=== PATIENT | female | born 1975 | race Caucasian/White ===

== ENCOUNTER 2017-10-09 06:30 | Day surgery (SDC) | payer MEDICARE, MEDICAID ==
[2017-10-09] MEDS ORDERED: Propofol 200 MG/20 ML SDV IV ONE (06:31)
[2017-10-09] MEDS ORDERED: Rocuronium 50 MG/5 ML Vial IV ONE (06:31)
[2017-10-09] MEDS ORDERED: fentaNYL 250 MCG/5 ML SDV IV ONE (06:31)
[2017-10-09] MEDS ORDERED: Promethazine 25 MG/ML SDV IV ONE (06:31)
[2017-10-09] MEDS ORDERED: Ondansetron 4 MG/2 ML SDV IV ONE (06:31)
[2017-10-09] MEDS ORDERED: Neostigmine Methylsulfate 10 MG/10 ML MDV IV ONE (06:31)
[2017-10-09] MEDS ORDERED: Midazolam 1 MG/ML 2 ML SDV IV ONE (06:31)
[2017-10-09] MEDS ORDERED: Glycopyrrolate 0.2 MG/ML 2 ML SDV IV ONE (06:31)
[2017-10-09] MEDS ORDERED: Dexamethasone 4 MG/ML SDV IV ONE (06:31)
[2017-10-09] MEDS ORDERED: Succinylcholine 200 MG/10 ML MDV IV ONE (06:31)
[2017-10-09] MEDS ORDERED: Lactated Ringers 1,000 ML IV SCH (07:15)
[2017-10-09] MEDS ORDERED: Clindamycin Phosphate 600 MG/4 ML SDV ONE (09:29)
[2017-10-09] MEDS ORDERED: Sodium Chloride 0.9% 100 ML ONE (09:33)
[2017-10-09] MEDS ORDERED: Clindamycin Phosphate 600 MG in Sodium Chloride 0.9% 100 ML IV ONE (09:40)
[2017-10-09] MEDS ORDERED: Iopamidol 612 MG/ML 50 ML SDV ONE (12:15)
[2017-10-09] MEDS ORDERED: Bupivacaine 0.5% 30 ML SDV ONE (13:25)
[2017-10-09] MEDS ORDERED: Bupivacaine 0.5% 30 ML SDV INJECT ONE (13:28)
[2017-10-09] MEDS ORDERED: HYDROmorphone 0.5 MG/0.5 ML Syringe IVPUSH PRN (14:41)
[2017-10-09] MEDS ORDERED: Sodium Chloride 0.9% 10 ML Syringe FLUSH PRN (14:41)
--- NOTE | 2017-10-09 15:42 | OR ---
DATE: 10/09/2017 PREOPERATIVE DIAGNOSIS: Chronic cholecystitis with cholelithiasis. POSTOPERATIVE DIAGNOSIS: Chronic cholecystitis, cholelithiasis, with cholecystoduodenal fistula. PROCEDURE: Laparoscopic cholecystectomy with intraoperative cholangiogram and repair of cholecystoduodenal fistula. ANESTHESIA: General. ESTIMATED BLOOD LOSS: 100 mL. SPECIMEN: Gallbladder. OPERATIVE FINDINGS: This patient had a markedly-contracted thick-walled gallbladder and had a fistula between [place] pouch of the gallbladder and the upper first part of the duodenum. She does have some other lower abdominal adhesions from her prior section. INDICATION FOR PROCEDURE: This is a 42-year-old female who has by radiologic imaging large gallstones in her gallbladder and symptomatic right upper quadrant epigastric abdominal pain. DESCRIPTION OF PROCEDURE: After adequate preparation, a 5-mm trocar was placed in the right upper quadrant and the abdomen insufflated under direct vision using a video camera. Three other trocars were placed in the standard fashion. Examination of the abdomen showed some lower midline adhesions from her prior C- section. She does have an appearance of a fatty liver. The gallbladder was identified, which was markedly contracted and scarred in within the surrounding area. The adhesions of the omentum to the Julieta pouch and duodenum area were cleared free. These were really dense adhesions, and using Bovie, I was able to free up the gallbladder on the lateral side and elevate this up; however, in dissecting down toward Julieta pouch, I was completely unable to dissect the duodenum from Julieta pouch. In dissecting this free sharply was evident that she had a fistula between the gallbladder and duodenum which opened up with dissection, but was able to free the duodenum. The gallbladder was then taken down in a retrograde fashion beginning at the fundus of the gallbladder and elevating the liver with blunt and sharp and cautery dissection, removing the gallbladder from the bed down to below the hole in the Julieta pouch where the fistula had been present. An intraoperative cholangiogram was done and confirmed that there were no problems with the common duct. She had a lot of scarring and I was actually unable to tell where the common duct was. Cholangiogram showed good free flow of dye into the hepatic radicals and through a nondilated common bile duct down into the duodenum, demonstrating no obstruction of the common duct and a clear path between the gallbladder fistula and the common bile duct. A 45 mm stapling device was used to staple across the gallbladder between the cystic duct and gallbladder fistula. This did not completely fire all the way across the gallbladder and the remaining opening in the small remnant of gallbladder was closed using an imbricating [id number] Vicryl suture. The gallbladder was then completely disassociated from the liver. Attention was drawn to the opening in the duodenum and 2 [id number] sutures were used to close the duodenal fistula opening. This was then flooded in the right upper quadrant with saline and an orogastric tube was used to insufflate the stomach. There was no evidence of air leak through the duodenal repair. A large Eagle-Hoffman fluted drain was then placed in the hepatic bed and the drain was brought out through the right-sided trocar site. This was then sutured in place. The abdomen was irrigated and suctioned clear. The abdomen was desufflated and the skin closed with Monocryl. [facility] /[id number]
--- NOTE | 2017-10-09 17:33 | PCM.SN ---
- Free Text/Narrative Note: Patient is alert and oriented. Pain OK. Some PO intake without nausea. Drain clear. Requesting to go home. Instructions given. Will see in FU in surgery clinic 10-12-17. Will take own medications at home. Can discharge. Dr. Galan
== END 2017-10-09 18:00 | disposition home or self-care (01) ==
LOC: DL.SDS 06:30 → EDSTATUS 08:00 → DL.MS 15:11 → DL.SDS 18:00
PROVIDERS: ATTEND Surgery
DX: K81.1 Chronic cholecystitis (principal); K82.3 Fistula of gallbladder; F17.210 Nicotine dependence, cigarettes, uncomplicated; Z88.8 Allergy status to other drugs, medicaments and biological substances; Z88.5 Allergy status to narcotic agent; Z88.0 Allergy status to penicillin
CPT/HCPCS: 00790; J0330; J1100; J2250; J2405; J2550; J2704; J2710; J3010; J3490; J7050; J7120; Q9967; S0077

== ENCOUNTER 2018-07-20 19:08 | Emergency (ER) | payer MEDICARE, MEDICAID ==
--- NOTE | 2018-07-20 19:18 | EDM.PDOC ---
ED HPI GENERAL MEDICAL PROBLEM - General Chief Complaint: General Stated Complaint: PUPILS DIALATED Time Seen by Provider: 07/20/18 19:20 Source of Information: Reports: Patient History Limitations: Reports: No Limitations - History of Present Illness INITIAL COMMENTS - FREE TEXT/NARRATIVE: Patient comes by ambulance from home today with concerns of an altered mental status. The history of present illness is primarily obtained from EMS as well as the daughter as the patient does not verbalize. According to the daughter the patient is a chronic pain management patient who takes alprazolam and methadone for chronic back pain. She has not seen her mother for the last 4-5 days and went to check on her yesterday. Yesterday she was tired and did not have much energy. She stated that she didn't feel well. She went to check on her today and she was not responsive. EMS was summoned. Upon EMS arrival they noticed a very dangerous and uninhabitable living environment that was covered in cat Feces and Urine with a large amount of garbage scattered around the house. Upon EMS arrival the patient is alert to verbal does follow commands but verbalizes nothing. Patient was incontinent of stool upon arrival. Generalized Pain Score (Numeric/FACES): 4 - Related Data Allergies Allergy/AdvReac Type Severity Reaction Status Date / Time morphine Allergy Facial Verified 07/20/18 19:42 Swelling Penicillins Allergy Other Verified 07/20/18 19:42 sulfamethoxazole Allergy Hives Verified 07/20/18 19:42 [From Bactrim] trimethoprim [From Bactrim] Allergy Hives Verified 07/20/18 19:42 Home Meds: Home Meds ALPRAZolam [Xanax] 0.25 mg PO Q4H PRN 10/08/17 [History] Albuterol/Ipratropium [Combivent Respimat] 1 - 2 puff INH Q4HR PRN 10/08/17 [ History] Caffeine 400 mg PO DAILY 10/08/17 [History] Carisoprodol [Soma] 350 mg PO DAILY 10/08/17 [History] Cholecalciferol (Vitamin D3) [Vitamin D] 5,000 unit PO DAILY 10/08/17 [History] DULoxetine [Cymbalta] 120 mg PO DAILY 10/08/17 [History] Ibuprofen 1 - 2 tab PO Q6H PRN 10/08/17 [History] Levothyroxine 25 mcg PO DAILY 10/08/17 [History] Lisinopril 10 mg PO DAILY 10/08/17 [History] Loperamide [Imodium AD] 8 mg PO Q6H PRN 10/08/17 [History] Magnesium 250 mg PO DAILY 10/08/17 [History] Methadone 5 mg PO QID 10/08/17 [History] Methocarbamol 500 mg PO TID 10/08/17 [History] Ondansetron HCl [Zofran] 4 mg PO DAILY PRN 10/08/17 [History] Pantoprazole Sodium [Protonix] 40 mg PO DAILY 10/08/17 [History] Pnv No.95/Ferrous Fum/Folic AC [ Multivitamin Tablet] 1 tab PO DAILY [History] Pregabalin [Lyrica] 300 mg PO BID 10/08/17 [History] Rosuvastatin [Crestor] 5 mg PO DAILY 10/08/17 [History] diphenhydrAMINE [Benadryl] 50 mg PO BID 10/08/17 [History] Past Medical History HEENT History: Reports: Impaired Vision Other HEENT History: WEARS CORRECTIVE LENS. UPPER DENTURE PLATE Cardiovascular History: Reports: High Cholesterol, Hypertension, Other (See Below) Other Cardiovascular History: RIGHT BUNDLE BRANCH BLOCK Other Respiratory History: HX OF TOBACCO HABITUATION. 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: Endometrial Ablation, Endometriosis, , Spontaneous Musculoskeletal History: Reports: Back Pain, Chronic, Fracture, Fibromyalgia, Neck Pain, Chronic, Osteoarthritis, Other (See Below) Other Musculoskeletal History: HX OF LOWER SPINAL FRACTURES Neurological History: Reports: None Psychiatric History: Reports: Anxiety, Mood Swings Endocrine/Metabolic History: Reports: Hypothyroidism, Obesity/BMI 30+, Osteoporosis, Vitamin D Deficiency Hematologic History: Reports: None Immunologic History: Reports: None Oncologic (Cancer) History: Reports: None Dermatologic History: Reports: None - Infectious Disease History Infectious Disease History: Reports: Chicken Pox - Past Surgical History Head Surgeries/Procedures: Reports: None HEENT Surgical History: Reports: Oral Surgery Cardiovascular Surgical History: Reports: None Respiratory Surgical History: Reports: None GI Surgical History: Reports: EGD Female Surgical History: Reports: Section, Cystoscopy, D&C Endocrine Surgical History: Reports: None Neurological Surgical History: Reports: Lumbar Spine Musculoskeletal Surgical History: Reports: None Oncologic Surgical History: Reports: None Dermatological Surgical History: Reports: None Social & Family History - Caffeine Use Caffeine Use: Reports: Soda Other Caffeine Use: SODA POP 6 PACK DAILY ED ROS GENERAL - Review of Systems Review Of Systems: ROS reveals no pertinent complaints other than HPI. ED EXAM, GENERAL - Physical Exam Exam: See Below Exam Limited By: Altered Mental Status General Appearance: Alert (To verbal), Obese, Other (She has a very strong foul smell of ammonia to her.) Eye Exam: Bilateral Eye: PERRL Ears: Normal External Exam, Normal TMs Nose: Normal Inspection, Normal Mucosa Throat/Mouth: Other (Her lips are very dry and cracked. Her oral mucosa is very dry. No erythema induration or swelling of the tonsillar beds.) Head: Atraumatic Respiratory/Chest: No Respiratory Distress, No Accessory Muscle Use, Decreased Breath Sounds Cardiovascular: Normal Peripheral Pulses, Regular Rate, Rhythm Peripheral Pulses: 2+: Radial (L), Radial (R), Posterior Tibial (L), Posterior Tibial (R), Dorsalis Pedis (L), Dorsalis Pedis (R) GI/Abdominal: Normal Bowel Sounds, Soft, Tender (Generalized tenderness throughout the abdomen.) (Female) Exam: Deferred Rectal (Female) Exam: Deferred Back Exam: Normal Inspection, Full Range of Motion Extremities: Normal Inspection, Non-Tender, No Pedal Edema, Normal Capillary Refill Neurological: Alert, Slow to Respond, Other (MARKS spontaneously nothing to command. ). No: Oriented (no verbal response) Psychiatric: Flat Affect Skin Exam: Dry, Intact, No Rash, Increased Warmth EKG INTERPRETATION EKG Date: 07/20/18 Time: 19:27 Rhythm: NSR Rate (Beats/Min): 71 [place]: Normal P-Wave: Present QRS: Normal ST-T: Depressed (V3, V4, V5 1mm) QT: Normal Course - Vital Signs Last Recorded V/S: Last Vital Signs Temp 37.2 C 07/20/18 21:17 Pulse 81 07/20/18 21:17 Resp 16 07/20/18 21:17 BP 183/90 H 07/20/18 21:17 Pulse Ox 97 07/20/18 21:17 - Orders/Labs/Meds Orders: Active Orders 24 hr Category Date Time Status EKG 12 Lead [EKG Documentation Completion] [RC] URGENT Care 07/20/18 19:26 Active Peripheral IV Care [RC] . DIRECTED Care 07/20/18 19:26 Active CULTURE BLOOD [BC] Stat Lab 07/20/18 19:25 Results CULTURE BLOOD [BC] Stat Lab 07/20/18 19:50 Received TOXOPLASMA ABS IGG/IGM [REF] Stat Lab 07/20/18 19:50 Received Sodium Chloride 0.9% [Saline Flush] Med 07/20/18 19:26 Active 10 ml FLUSH ASDIRECTED PRN Sodium Chloride 0.9% with KCl [Normal Saline with 40 Med 07/20/18 20:45 Active mEq KCl] 1,000 ml IV ASDIRECTED Blood Culture x2 Reflex Set [OM.PC] Stat Oth 07/20/18 19:26 Ordered Peripheral IV Insertion Adult [OM.PC] Stat Oth 07/20/18 19:26 Ordered Medication Orders Potassium Chloride/Sodium Chloride (Normal Saline With 40 Meq Kcl) 1,000 mls @ 250 mls/hr IV ASDIRECTED JUANA Last Infusion: 07/20/18 22:03 Dose: 125 mls/hr Admin: 07/20/18 21:15 Dose: 250 mls/hr Sodium Chloride (Saline Flush) 10 ml FLUSH ASDIRECTED PRN PRN Reason: Keep Vein Open Last Admin: 07/20/18 19:36 Dose: 10 ml Labs: Laboratory Tests 07/20/18 07/20/18 07/20/18 Range/Units 19: 19:25 19:25 WBC 12.9 H (5.0-10.0) 10^3/uL RBC 4.27 (4.2-5.4) 10^6/uL Hgb 14.3 (12.0-16.0) g/dL Hct 41.5 (37.0-47.0) % MCV 97.2 (80-100) fL MCH 33.5 (27.0-34.0) pg MCHC 34.5 (33.0-35.0) g/dL Plt Count 175 (150-450) 10^3/uL Neut % (Auto) 82.4 H (42.2-75.2) % Lymph % (Auto) 9.5 L (20.5-50.1) % [place] % (Auto) 7.9 (2-8) % Eos % (Auto) 0.0 L (1.0-3.0) % Baso % (Auto) 0.2 (0.0-1.0) % Sodium (135-145) mmol/L Potassium (3.6-5.0) mmol/L Chloride (101-111) mmol/L Carbon Dioxide (21.0-31.0) mmol/L Anion Gap BUN (7-18) mg/dL Creatinine (0.6-1.3) mg/dL Est Cr Clr Drug Dosing mL/min Estimated GFR (MDRD) BUN/Creatinine Ratio Glucose (74-105) mg/dL POC Glucose 113 H (70-105) mg/dl Lactic Acid 1.2 (0.5-2.2) mmol/L Calcium (8.4-10.2) mg/dl Total Bilirubin (0.2-1.0) mg/dL AST (10-42) IU/L ALT (10-60) IU/L Alkaline Phosphatase (42-121) IU/L Ammonia (11-35) umol/L Creatine Kinase (26-174) IU/L Creatine Kinase Index (0-2.4) % CK-MB (CK-2) (0.4-4.7) ng/mL Troponin I (0.00-0.02) ng/ml C-Reactive Protein (0.0-1.3) mg/dL Total Protein (6.7-8.2) g/dl Albumin (3.2-5.5) g/dl Globulin Albumin/Globulin Ratio Urine Color (YELLOW) Urine Appearance (CLEAR) Urine pH (5.0-9.0) Ur Specific [place] (1.005-1.030) Urine Protein (NEGATIVE) Urine Glucose (UA) (NEGATIVE) Urine Ketones (NEGATIVE) Urine Occult Blood (NEGATIVE) Urine Nitrite (NEGATIVE) Urine Bilirubin (NEGATIVE) Urine Urobilinogen (0.2-1.0) mg/dL Ur Leukocyte Esterase (NEGATIVE) Urine RBC /HPF Urine WBC (0-5/HPF) /HPF Ur Epithelial Cells /HPF Amorphous Sediment (0/HPF) /HPF Urine Bacteria (0-FEW/HPF) /HPF Urine Opiates Screen (NEGATIVE) Ur Oxycodone Screen (NEGATIVE) Urine Methadone Screen (NEGATIVE) Ur Barbiturates Screen (NEGATIVE) U Tricyclic Antidepress (NEGATIVE) Ur Phencyclidine Scrn (NEGATIVE) Ur Amphetamine Screen (NEGATIVE) U Methamphetamines Scrn (NEGATIVE) Urine MDMA Screen (NEGATIVE) U Benzodiazepines Scrn (NEGATIVE) Urine Cocaine Screen (NEGATIVE) U Marijuana (THC) Screen (NEGATIVE) 07/20/18 07/20/18 07/20/18 Range/Units 19:25 19:32 19:32 WBC (5.0-10.0) 10^3/uL RBC (4.2-5.4) 10^6/uL Hgb (12.0-16.0) g/dL Hct (37.0-47.0) % MCV (80-100) fL MCH (27.0-34.0) pg MCHC (33.0-35.0) g/dL Plt Count (150-450) 10^3/uL Neut % (Auto) (42.2-75.2) % Lymph % (Auto) (20.5-50.1) % [place] % (Auto) (2-8) % Eos % (Auto) (1.0-3.0) % Baso % (Auto) (0.0-1.0) % Sodium (135-145) mmol/L Potassium (3.6-5.0) mmol/L Chloride (101-111) mmol/L Carbon Dioxide (21.0-31.0) mmol/L Anion Gap BUN (7-18) mg/dL Creatinine (0.6-1.3) mg/dL Est Cr Clr Drug Dosing mL/min Estimated GFR (MDRD) BUN/Creatinine Ratio Glucose (74-105) mg/dL POC Glucose (70-105) mg/dl Lactic Acid (0.5-2.2) mmol/L Calcium (8.4-10.2) mg/dl Total Bilirubin (0.2-1.0) mg/dL AST (10-42) IU/L ALT (10-60) IU/L Alkaline Phosphatase (42-121) IU/L Ammonia (11-35) umol/L Creatine Kinase (26-174) IU/L Creatine Kinase Index (0-2.4) % CK-MB (CK-2) (0.4-4.7) ng/mL Troponin I (0.00-0.02) ng/ml C-Reactive Protein 0.5 (0.0-1.3) mg/dL Total Protein (6.7-8.2) g/dl Albumin (3.2-5.5) g/dl Globulin Albumin/Globulin Ratio Urine Color Yellow (YELLOW) Urine Appearance Cloudy (CLEAR) Urine pH 5.0 (5.0-9.0) Ur Specific [place] >= 1.030 (1.005-1.030) Urine Protein Trace H (NEGATIVE) Urine Glucose (UA) Negative (NEGATIVE) Urine Ketones Trace H (NEGATIVE) Urine Occult Blood Trace-intact H (NEGATIVE) Urine Nitrite Negative (NEGATIVE) Urine Bilirubin Small H (NEGATIVE) Urine Urobilinogen 1.0 (0.2-1.0) mg/dL Ur Leukocyte Esterase Negative (NEGATIVE) Urine RBC Not seen /HPF Urine WBC 0-5 (0-5/HPF) /HPF Ur Epithelial Cells Not seen /HPF Amorphous Sediment Many H (0/HPF) /HPF Urine Bacteria Rare (0-FEW/HPF) /HPF Urine Opiates Screen Negative (NEGATIVE) Ur Oxycodone Screen Negative (NEGATIVE) Urine Methadone Screen Positive H (NEGATIVE) Ur Barbiturates Screen Negative (NEGATIVE) U Tricyclic Antidepress Negative (NEGATIVE) Ur Phencyclidine Scrn Negative (NEGATIVE) Ur Amphetamine Screen Negative (NEGATIVE) U Methamphetamines Scrn Negative (NEGATIVE) Urine MDMA Screen Negative (NEGATIVE) U Benzodiazepines Scrn Negative (NEGATIVE) Urine Cocaine Screen Negative (NEGATIVE) U Marijuana (THC) Screen Negative (NEGATIVE) 07/20/18 07/20/18 07/20/18 Range/Units 19:50 19:50 19:50 WBC (5.0-10.0) 10^3/uL RBC (4.2-5.4) 10^6/uL Hgb (12.0-16.0) g/dL Hct (37.0-47.0) % MCV (80-100) fL MCH (27.0-34.0) pg MCHC (33.0-35.0) g/dL Plt Count (150-450) 10^3/uL Neut % (Auto) (42.2-75.2) % Lymph % (Auto) (20.5-50.1) % [place] % (Auto) (2-8) % Eos % (Auto) (1.0-3.0) % Baso % (Auto) (0.0-1.0) % Sodium 142 (135-145) mmol/L Potassium 2.9 L (3.6-5.0) mmol/L Chloride 104 (101-111) mmol/L Carbon Dioxide 25.0 (21.0-31.0) mmol/L Anion Gap 15.9 BUN 14 (7-18) mg/dL Creatinine 0.9 (0.6-1.3) mg/dL Est Cr Clr Drug Dosing 76.76 mL/min Estimated GFR (MDRD) > 60 BUN/Creatinine Ratio 15.55 Glucose 126 H (74-105) mg/dL POC Glucose (70-105) mg/dl Lactic Acid (0.5-2.2) mmol/L Calcium 8.5 (8.4-10.2) mg/dl Total Bilirubin 1.1 H (0.2-1.0) mg/dL AST 52 H (10-42) IU/L ALT 30 (10-60) IU/L Alkaline Phosphatase 52 (42-121) IU/L Ammonia 20 (11-35) umol/L Creatine Kinase 801 H (26-174) IU/L Creatine Kinase Index 0.1 (0-2.4) % CK-MB (CK-2) 0.80 (0.4-4.7) ng/mL Troponin I 0.09 H* (0.00-0.02) ng/ml C-Reactive Protein (0.0-1.3) mg/dL Total Protein 7.2 (6.7-8.2) g/dl Albumin 3.6 (3.2-5.5) g/dl Globulin 3.6 Albumin/Globulin Ratio 1.00 Urine Color (YELLOW) Urine Appearance (CLEAR) Urine pH (5.0-9.0) Ur Specific [place] (1.005-1.030) Urine Protein (NEGATIVE) Urine Glucose (UA) (NEGATIVE) Urine Ketones (NEGATIVE) Urine Occult Blood (NEGATIVE) Urine Nitrite (NEGATIVE) Urine Bilirubin (NEGATIVE) Urine Urobilinogen (0.2-1.0) mg/dL Ur Leukocyte Esterase (NEGATIVE) Urine RBC /HPF Urine WBC (0-5/HPF) /HPF Ur Epithelial Cells /HPF Amorphous Sediment (0/HPF) /HPF Urine Bacteria (0-FEW/HPF) /HPF Urine Opiates Screen (NEGATIVE) Ur Oxycodone Screen (NEGATIVE) Urine Methadone Screen (NEGATIVE) Ur Barbiturates Screen (NEGATIVE) U Tricyclic Antidepress (NEGATIVE) Ur Phencyclidine Scrn (NEGATIVE) Ur Amphetamine Screen (NEGATIVE) U Methamphetamines Scrn (NEGATIVE) Urine MDMA Screen (NEGATIVE) U Benzodiazepines Scrn (NEGATIVE) Urine Cocaine Screen (NEGATIVE) U Marijuana (THC) Screen (NEGATIVE) Microbiology 07/20/18 19:25 Anaerobic Blood Culture - Final Blood - Venous 07/20/18 20:08 Influenza Type A Antigen Screen - Final Nasopharyngeal Swab NEGATIVE INFLUENZA A VIRUS AG Influenza Type B Antigen Screen - Final NEGATIVE INFLUENZA B VIRUS AG Meds: Medications Generic Name Dose Route Start Last Admin Trade Name Freq PRN Reason Stop Dose Admin Potassium Chloride/Sodium Chloride 1,000 mls @ 250 mls/hr 07/20/18 20:45 22:03 Normal Saline With 40 Meq Kcl IV 125 mls/hr ASDIRECTED JUANA Infusion Sodium Chloride 10 ml 07/20/18 19:26 07/20/18 19:36 Saline Flush FLUSH 10 ml ASDIRECTED PRN Administration Keep Vein Open Discontinued Medications Generic Name Dose Route Start Last Admin Trade Name Freq PRN Reason Stop Dose Admin Lactated Ringer's 1,000 mls @ 1,000 mls/hr 07/20/18 19:39 07/20/18 19:46 Ringers, Lactated IV 07/20/18 20:38 1,000 mls/hr .BOLUS ONE Administration Midazolam HCl 2 mg 07/20/18 20:32 07/20/18 20:38 Versed 1 Mg/Ml IVPUSH 07/20/18 20:33 2 mg ONETIME ONE Administration - Radiology Interpretation Free Text/Narrative:: CT head no evidence for acute transcortical infarct, acute intracranial hemorrhage or mass effect. Per radiology. CT abdomen pelvis without contrast as the daughter relates a contrast allergy shows no evidence of acute abdominopelvic pathology. Per radiology. - Re-Assessments/Exams Free Text/Narrative Re-Assessment/Exam: 07/20/18 22:09 The patient did slowly start to verbalize while she was in the emergency department but really gave no more information. [address] scan of the head and abdomen due to the tenderness in her abdomen both of them are negative per radiology. Her EKG does show some mild depression at 1 mm in V3, V4, V5. I'm unsure if she' s having chest pain and she does not answer that question. Her troponin is mildly elevated at 0.09. Her CK is mildly elevated at 801 making it less likely for rhabdomyolysis. I'm unable to determine the cause of her fever altered mental status. She is on a chronic pain contract and uses methadone and her urine drug screen is appropriate. The family does not want her transferred to [place] for further evaluation. I did receive an excepting infarct although due to the weather and the roads I am unable to transfer her to [place]. I called and spoke with Dr. Schroeder in [place] ER provider, [facility] findings and concerns relayed to him he accepted the patient in transfer at this time. NO new orders. Departure - Departure Time of Disposition: 21:15 Disposition: DC/Tfer to [facility] 02 Clinical Impression: Hypokalemia, Elevated troponin Altered mental state Qualifiers: Altered mental status type: unspecified Qualified Code(s): R41.82 - Altered mental status, unspecified - Discharge Information Forms: ED Department Discharge - My Orders Last 24 Hours: My Active Orders 07/20/18 19:25 CULTURE BLOOD [BC] Stat 07/20/18 19:26 EKG 12 Lead [EKG Documentation Completion] [RC] URGENT Peripheral IV Care [RC] . DIRECTED Sodium Chloride 0.9% [Saline Flush] 10 ml FLUSH ASDIRECTED PRN Blood Culture x2 Reflex Set [OM.PC] Stat Peripheral IV Insertion Adult [OM.PC] Stat 07/20/18 19:50 CULTURE BLOOD [BC] Stat TOXOPLASMA ABS IGG/IGM [REF] Stat 07/20/18 20:45 Sodium Chloride 0.9% with KCl [Normal Saline with 40 mEq KCl] 1,000 ml IV ASDIRECTED - Assessment/Plan Last 24 Hours: My Active Orders 07/20/18 19:25 CULTURE BLOOD [BC] Stat 07/20/18 19:26 EKG 12 Lead [EKG Documentation Completion] [RC] URGENT Peripheral IV Care [RC] . DIRECTED Sodium Chloride 0.9% [Saline Flush] 10 ml FLUSH ASDIRECTED PRN Blood Culture x2 Reflex Set [OM.PC] Stat Peripheral IV Insertion Adult [OM.PC] Stat 07/20/18 19:50 CULTURE BLOOD [BC] Stat TOXOPLASMA ABS IGG/IGM [REF] Stat 07/20/18 20:45 Sodium Chloride 0.9% with KCl [Normal Saline with 40 mEq KCl] 1,000 ml IV ASDIRECTED Assessment:: altered mental status elevated troponin hypokalemia chronic pain. Plan: Transfer to [facility] for further care and evaluation.
[2018-07-20] MEDS ORDERED: Sodium Chloride 0.9% 10 ML Syringe FLUSH PRN (19:26)
[2018-07-20] MEDS ORDERED: Lactated Ringers 1,000 ML IV ONE (19:39)
[2018-07-20 20:16] LABS: ANION GAP 15.9; CHLORIDE,CL 104 mmol/L (101-111); SODIUM,NA 142 mmol/L (135-145)
[2018-07-20] MEDS ORDERED: Midazolam 1 MG/ML 2 ML SDV IVPUSH ONE (20:32)
[2018-07-20] MEDS ORDERED: Sodium Chloride 0.9% with KCl 1,000 ML IV SCH (20:45)
[2018-07-20] MEDS ORDERED: Aspirin 81 MG Tab.Chew PO ONE (22:12)
== END 2018-07-20 22:34 ==
LOC: DL.ED 19:08
DX: R41.82 Altered mental status, unspecified (principal); E87.6 Hypokalemia; R79.89 Other specified abnormal findings of blood chemistry; M54.5 Low back pain; G89.29 Other chronic pain; I10 Essential (primary) hypertension; E03.9 Hypothyroidism, unspecified; E66.9 Obesity, unspecified; Z79.899 Other long term (current) drug therapy; Z88.0 Allergy status to penicillin; Z88.2 Allergy status to sulfonamides; Z88.5 Allergy status to narcotic agent
CPT/HCPCS: 36415; 70450; 74176; 80053; 80305; 81001; 82140; 82550; 82553; 82962; 83605; 84484; 85025; 86140; 86777; 86778; 87040; 87804; 93005; 96361; 96365; 96375; 99285; A9270; J2250; J3480; J7120

== ENCOUNTER 2018-07-27 17:53 | Emergency (ER) | payer MEDICARE, MEDICAID ==
[2018-07-27] MEDS ORDERED: Sodium Chloride 0.9% 10 ML Syringe FLUSH PRN (18:00)
--- NOTE | 2018-07-27 18:27 | EDM.PDOC ---
ED HPI GENERAL MEDICAL PROBLEM - General Chief Complaint: Drug or Alcohol Abuse Stated Complaint: AMBULANCE Time Seen by Provider: 07/27/18 18:15 Source of Information: Reports: EMS, Family History Limitations: Reports: Altered Mental Status - History of Present Illness INITIAL COMMENTS - FREE TEXT/NARRATIVE: Patient comes emergency department today for by ambulance from home with concerns of an altered mental status. The patient was recently discharged from the [facility] following a similar episode of altered mental status. I was actually the provider that saw her at that time. She does have a long-standing history of polypharmacy substance abuse. When she was in my not they decreased her methadone discontinued her Xanax and 2 other medications that the family is unsure of. Yesterday she was not herself not very active and was unable to go up the stairs. Today after laying around all day and doing nothing at home the family went to check on her they could not wake her up. They reported that her oxygen saturation was in the mid 70s. According to the family they have been observing her swallowing her pills and they have been controlling her pills with a timed bottle to ensure adherence to the administration time. Upon EMS arrival she was unresponsive with shallow respirations. She was given a total of 6 mg of Narcan until she alerted. She was able to ambulate to the ambulance at that time. She was combative in route to the emergency department. Unable to obtain any history of present illness from the patient as she is confused and somewhat combative on arrival. - Related Data Allergies Allergy/AdvReac Type Severity Reaction Status Date / Time morphine Allergy Facial Verified 07/27/18 18:15 Swelling Penicillins Allergy Other Verified 07/27/18 18:15 sulfamethoxazole Allergy Hives Verified 07/27/18 18:15 [From Bactrim] trimethoprim [From Bactrim] Allergy Hives Verified 07/27/18 18:15 Home Meds: Home Meds ALPRAZolam [Xanax] 0.25 mg PO Q4H PRN 10/08/17 [History] Albuterol/Ipratropium [Combivent Respimat] 1 - 2 puff INH Q4HR PRN 10/08/17 [ History] Caffeine 400 mg PO DAILY 10/08/17 [History] Carisoprodol [Soma] 350 mg PO DAILY 10/08/17 [History] Cholecalciferol (Vitamin D3) [Vitamin D] 5,000 unit PO DAILY 10/08/17 [History] DULoxetine [Cymbalta] 120 mg PO DAILY 10/08/17 [History] Ibuprofen 1 - 2 tab PO Q6H PRN 10/08/17 [History] Levothyroxine 25 mcg PO DAILY 10/08/17 [History] Lisinopril 10 mg PO DAILY 10/08/17 [History] Loperamide [Imodium AD] 8 mg PO Q6H PRN 10/08/17 [History] Magnesium 250 mg PO DAILY 10/08/17 [History] Methadone 5 mg PO QID 10/08/17 [History] Methocarbamol 500 mg PO TID 10/08/17 [History] Ondansetron HCl [Zofran] 4 mg PO DAILY PRN 10/08/17 [History] Pantoprazole Sodium [Protonix] 40 mg PO DAILY 10/08/17 [History] Pnv No.95/Ferrous Fum/Folic AC [ Multivitamin Tablet] 1 tab PO DAILY [History] Pregabalin [Lyrica] 300 mg PO BID 10/08/17 [History] Rosuvastatin [Crestor] 5 mg PO DAILY 10/08/17 [History] diphenhydrAMINE [Benadryl] 50 mg PO BID 10/08/17 [History] Past Medical History HEENT History: Reports: Impaired Vision Other HEENT History: WEARS CORRECTIVE LENS. UPPER DENTURE PLATE Cardiovascular History: Reports: High Cholesterol, Hypertension, Other (See Below) Other Cardiovascular History: RIGHT BUNDLE BRANCH BLOCK Other Respiratory History: HX OF TOBACCO HABITUATION. 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: Endometrial Ablation, Endometriosis, , Spontaneous Musculoskeletal History: Reports: Back Pain, Chronic, Fracture, Fibromyalgia, Neck Pain, Chronic, Osteoarthritis, Other (See Below) Other Musculoskeletal History: HX OF LOWER SPINAL FRACTURES Neurological History: Reports: None Psychiatric History: Reports: Anxiety, Mood Swings Endocrine/Metabolic History: Reports: Hypothyroidism, Obesity/BMI 30+, Osteoporosis, Vitamin D Deficiency Hematologic History: Reports: None Immunologic History: Reports: None Oncologic (Cancer) History: Reports: None Dermatologic History: Reports: None - Infectious Disease History Infectious Disease History: Reports: Chicken Pox - Past Surgical History Head Surgeries/Procedures: Reports: None HEENT Surgical History: Reports: Oral Surgery Cardiovascular Surgical History: Reports: None Respiratory Surgical History: Reports: None GI Surgical History: Reports: EGD Female Surgical History: Reports: Section, Cystoscopy, D&C Endocrine Surgical History: Reports: None Neurological Surgical History: Reports: Lumbar Spine Musculoskeletal Surgical History: Reports: None Oncologic Surgical History: Reports: None Dermatological Surgical History: Reports: None Social & Family History - Caffeine Use Caffeine Use: Reports: Soda Other Caffeine Use: SODA POP 6 PACK DAILY ED ROS GENERAL - Review of Systems Review Of Systems: Unable To Obtain - Physical Exam Exam: See Below Text/Narrative:: she is rather unkept and her hygiene is poor as well. Exam Limited By: Altered Mental Status General Appearance: Anxious, Moderate Distress, Obese Eye Exam: Bilateral Eye: EOMI, PERRL Ears: Normal External Exam, Normal TMs Nose: Normal Inspection, Normal Mucosa, No Blood Throat/Mouth: No: Normal Inspection (Oral mucosa is quite dry.), Normal Lips ( Lips are dry and cracked.) Head Exam: Atraumatic, Normocephalic Neck: Normal Inspection, Supple, Non-Tender Respiratory/Chest: No Respiratory Distress, Lungs Clear, No Accessory Muscle Use , Decreased Breath Sounds (Decreased throughout). No: Crackles, Wheezing, Stridor Cardiovascular: Normal Peripheral Pulses, Regular Rate, Rhythm, Tachycardia GI/Abdominal: Normal Bowel Sounds, Soft, Non-Tender, Other (There is some scattered ecchymosis on the abdomen with some very small what appear to be injection sites in the middle of the ecchymosis and I wonder if this is not from Lovenox injection from the hospitalization recently.) Neuro Exam (Abbreviated): Alert, Confused, Disoriented, Other (The patient moves all extremities strong equal spontaneously. Cranial nerves are grossly intact what I can examine with her not being cooperative. She gives no verbal answers or makes any attempt to verbalize.) Back Exam: Normal Inspection, Full Range of Motion Extremities: Normal Inspection, Normal Range of Motion, Non-Tender, Normal Capillary Refill Psychiatric: Normal Affect, Normal Mood Skin Exam: Warm, Dry, Intact, Pallor EKG INTERPRETATION EKG Date: 07/27/18 Time: 18:19 Rhythm: NSR (tachy) Rate (Beats/Min): 110 Fleming: Normal P-Wave: Present QRS: Normal ST-T: Depressed (in the lateral leads which is unchanged from previous.) QT: Normal Comparison: No Change Course - Vital Signs Last Recorded V/S: Last Vital Signs Temp 38.2 C H 07/27/18 18:14 Pulse 108 H 07/27/18 18:14 Resp 44 H 07/27/18 18:14 BP 121/104 H 07/27/18 18:14 Pulse Ox 94 L 07/27/18 18:14 - Orders/Labs/Meds Orders: Active Orders 24 hr Category Date Time Status EKG 12 Lead [EKG Documentation Completion] [RC] URGENT Care 07/27/18 18:00 Active Peripheral IV Care [RC] . DIRECTED Care 07/27/18 18:00 Active Sodium Chloride 0.9% [Saline Flush] Med 07/27/18 18:00 Active 10 ml FLUSH ASDIRECTED PRN Sodium Chloride 0.9% with KCl [Normal Saline with 40 Med 07/27/18 19:00 Active mEq KCl] 1,000 ml IV ASDIRECTED Peripheral IV Insertion Adult [OM.PC] Stat Oth 07/27/18 18:00 Ordered Medication Orders Potassium Chloride/Sodium Chloride (Normal Saline With 40 Meq Kcl) 1,000 mls @ 250 mls/hr IV ASDIRECTED [facility] Last Admin: 07/27/18 18:59 Dose: 250 mls/hr Sodium Chloride (Saline Flush) 10 ml FLUSH ASDIRECTED PRN PRN Reason: Keep Vein Open Last Admin: 07/27/18 18:13 Dose: 10 ml Labs: Laboratory Tests 07/27/18 07/27/18 07/27/18 Range/Units 18:03 18:03 18:10 WBC 8.7 (5.0-10.0) 10^3/uL RBC 4.17 L (4.2-5.4) 10^6/uL Hgb 13.8 (12.0-16.0) g/dL Hct 41.2 (37.0-47.0) % MCV 98.8 (80-100) fL MCH 33.1 (27.0-34.0) pg MCHC 33.5 (33.0-35.0) g/dL Plt Count 187 (150-450) 10^3/uL Neut % (Auto) 81.1 H (42.2-75.2) % Lymph % (Auto) 9.7 L (20.5-50.1) % [place] % (Auto) 8.9 H (2-8) % Eos % (Auto) 0.0 L (1.0-3.0) % Baso % (Auto) 0.3 (0.0-1.0) % Add Manual Diff Yes Neutrophils % (Manual) 83 H (42-75) % Lymphocytes % (Manual) 10 L (20-50) % Monocytes % (Manual) 7 (2-8) % Nucleated RBCs 1 /100WBC VBG pH (7.31-7.41) VBG pCO2 (41-51) mmHg VBG pO2 (35-42) mmHg VBG HCO3 (19-25) mmol/l VBG O2 Saturation (60-80) % VBG Base Excess ((-2)-(+3)) mmol/l O2 Delivery Device Oxygen Flow Rate Sodium (135-145) mmol/L Potassium (3.6-5.0) mmol/L Chloride (101-111) mmol/L Carbon Dioxide (21.0-31.0) mmol/L Anion Gap BUN (7-18) mg/dL Creatinine (0.6-1.3) mg/dL Est Cr Clr Drug Dosing mL/min Estimated GFR (MDRD) BUN/Creatinine Ratio Glucose (74-105) mg/dL Calcium (8.4-10.2) mg/dl Magnesium (1.8-2.5) mg/dL Total Bilirubin (0.2-1.0) mg/dL AST (10-42) IU/L ALT (10-60) IU/L Alkaline Phosphatase (42-121) IU/L Troponin I (0.00-0.02) ng/ml Total Protein (6.7-8.2) g/dl Albumin (3.2-5.5) g/dl Globulin Albumin/Globulin Ratio TSH, Ultra Sensitive (0.45-5.33) uIu/mL Urine Color Yellow (YELLOW) Urine Appearance Slightly cloudy (CLEAR) Urine pH 5.5 (5.0-9.0) Ur Specific [place] 1.015 (1.005-1.030) Urine Protein 30 H (NEGATIVE) Urine Glucose (UA) Negative (NEGATIVE) Urine Ketones Negative (NEGATIVE) Urine Occult Blood Trace-intact H (NEGATIVE) Urine Nitrite Negative (NEGATIVE) Urine Bilirubin Negative (NEGATIVE) Urine Urobilinogen 0.2 (0.2-1.0) mg/dL Ur Leukocyte Esterase Negative (NEGATIVE) Urine RBC 0-5 /HPF Urine WBC 0-5 (0-5/HPF) /HPF Ur Epithelial Cells Few /HPF Amorphous Sediment Rare (0/HPF) /HPF Urine Bacteria Rare (0-FEW/HPF) /HPF Urine Mucus Moderate H /LPF Salicylates mg/dL Urine Opiates Screen Positive H (NEGATIVE) Ur Oxycodone Screen Negative (NEGATIVE) Urine Methadone Screen Positive H (NEGATIVE) Acetaminophen ug/mL Ur Barbiturates Screen Negative (NEGATIVE) U Tricyclic Antidepress Negative (NEGATIVE) Ur Phencyclidine Scrn Negative (NEGATIVE) Ur Amphetamine Screen Negative (NEGATIVE) U Methamphetamines Scrn Negative (NEGATIVE) Urine MDMA Screen Negative (NEGATIVE) U Benzodiazepines Scrn Negative (NEGATIVE) Urine Cocaine Screen Negative (NEGATIVE) U Marijuana (THC) Screen Negative (NEGATIVE) 07/27/18 07/27/18 07/27/18 Range/Units 18:10 18:10 18:10 WBC (5.0-10.0) 10^3/uL RBC (4.2-5.4) 10^6/uL Hgb (12.0-16.0) g/dL Hct (37.0-47.0) % MCV (80-100) fL MCH (27.0-34.0) pg MCHC (33.0-35.0) g/dL Plt Count (150-450) 10^3/uL Neut % (Auto) (42.2-75.2) % Lymph % (Auto) (20.5-50.1) % Dorado % (Auto) (2-8) % Eos % (Auto) (1.0-3.0) % Baso % (Auto) (0.0-1.0) % Add Manual Diff Neutrophils % (Manual) (42-75) % Lymphocytes % (Manual) (20-50) % Monocytes % (Manual) (2-8) % Nucleated RBCs /100WBC VBG pH (7.31-7.41) VBG pCO2 (41-51) mmHg VBG pO2 (35-42) mmHg VBG HCO3 (19-25) mmol/l VBG O2 Saturation (60-80) % VBG Base Excess ((-2)-(+3)) mmol/l O2 Delivery Device Oxygen Flow Rate Sodium 137 (135-145) mmol/L Potassium 2.6 L (3.6-5.0) mmol/L Chloride 97 L (101-111) mmol/L Carbon Dioxide 26.0 (21.0-31.0) mmol/L Anion Gap 16.6 BUN 9 (7-18) mg/dL Creatinine 1.2 (0.6-1.3) mg/dL Est Cr Clr Drug Dosing 59.72 mL/min Estimated GFR (MDRD) 49 BUN/Creatinine Ratio 7.50 Glucose 108 H (74-105) mg/dL Calcium 8.3 L (8.4-10.2) mg/dl Magnesium (1.8-2.5) mg/dL Total Bilirubin 0.6 (0.2-1.0) mg/dL AST 34 (10-42) IU/L ALT 16 (10-60) IU/L Alkaline Phosphatase 45 (42-121) IU/L Troponin I 0.03 H* (0.00-0.02) ng/ml Total Protein 6.8 (6.7-8.2) g/dl Albumin 3.2 (3.2-5.5) g/dl Globulin 3.6 Albumin/Globulin Ratio 0.89 TSH, Ultra Sensitive 0.65 (0.45-5.33) uIu/mL Urine Color (YELLOW) Urine Appearance (CLEAR) Urine pH (5.0-9.0) Ur Specific [place] (1.005-1.030) Urine Protein (NEGATIVE) Urine Glucose (UA) (NEGATIVE) Urine Ketones (NEGATIVE) Urine Occult Blood (NEGATIVE) Urine Nitrite (NEGATIVE) Urine Bilirubin (NEGATIVE) Urine Urobilinogen (0.2-1.0) mg/dL Ur Leukocyte Esterase (NEGATIVE) Urine RBC /HPF Urine WBC (0-5/HPF) /HPF Ur Epithelial Cells /HPF Amorphous Sediment (0/HPF) /HPF Urine Bacteria (0-FEW/HPF) /HPF Urine Mucus /LPF Salicylates < 4.0 mg/dL Urine Opiates Screen (NEGATIVE) Ur Oxycodone Screen (NEGATIVE) Urine Methadone Screen (NEGATIVE) Acetaminophen < 10.0 ug/mL Ur Barbiturates Screen (NEGATIVE) U Tricyclic Antidepress (NEGATIVE) Ur Phencyclidine Scrn (NEGATIVE) Ur Amphetamine Screen (NEGATIVE) U Methamphetamines Scrn (NEGATIVE) Urine MDMA Screen (NEGATIVE) U Benzodiazepines Scrn (NEGATIVE) Urine Cocaine Screen (NEGATIVE) U Marijuana (THC) Screen (NEGATIVE) 07/27/18 07/27/18 Range/Units 18:10 18:40 WBC (5.0-10.0) 10^3/uL RBC (4.2-5.4) 10^6/uL Hgb (12.0-16.0) g/dL Hct (37.0-47.0) % MCV (80-100) fL MCH (27.0-34.0) pg MCHC (33.0-35.0) g/dL Plt Count (150-450) 10^3/uL Neut % (Auto) (42.2-75.2) % Lymph % (Auto) (20.5-50.1) % Dorado % (Auto) (2-8) % Eos % (Auto) (1.0-3.0) % Baso % (Auto) (0.0-1.0) % Add Manual Diff Neutrophils % (Manual) (42-75) % Lymphocytes % (Manual) (20-50) % Monocytes % (Manual) (2-8) % Nucleated RBCs /100WBC VBG pH 7.43 H (7.31-7.41) VBG pCO2 44 (41-51) mmHg VBG pO2 26 L (35-42) mmHg VBG HCO3 29 H (19-25) mmol/l VBG O2 Saturation 30.7 L (60-80) % VBG Base Excess 4.3 H ((-2)-(+3)) mmol/l O2 Delivery Device Non rebr mask Oxygen Flow Rate 2.5 Sodium (135-145) mmol/L Potassium (3.6-5.0) mmol/L Chloride (101-111) mmol/L Carbon Dioxide (21.0-31.0) mmol/L Anion Gap BUN (7-18) mg/dL Creatinine (0.6-1.3) mg/dL Est Cr Clr Drug Dosing mL/min Estimated GFR (MDRD) BUN/Creatinine Ratio Glucose (74-105) mg/dL Calcium (8.4-10.2) mg/dl Magnesium 1.3 L (1.8-2.5) mg/dL Total Bilirubin (0.2-1.0) mg/dL AST (10-42) IU/L ALT (10-60) IU/L Alkaline Phosphatase (42-121) IU/L Troponin I (0.00-0.02) ng/ml Total Protein (6.7-8.2) g/dl Albumin (3.2-5.5) g/dl Globulin Albumin/Globulin Ratio TSH, Ultra Sensitive (0.45-5.33) uIu/mL Urine Color (YELLOW) Urine Appearance (CLEAR) Urine pH (5.0-9.0) Ur Specific [place] (1.005-1.030) Urine Protein (NEGATIVE) Urine Glucose (UA) (NEGATIVE) Urine Ketones (NEGATIVE) Urine Occult Blood (NEGATIVE) Urine Nitrite (NEGATIVE) Urine Bilirubin (NEGATIVE) Urine Urobilinogen (0.2-1.0) mg/dL Ur Leukocyte Esterase (NEGATIVE) Urine RBC /HPF Urine WBC (0-5/HPF) /HPF Ur Epithelial Cells /HPF Amorphous Sediment (0/HPF) /HPF Urine Bacteria (0-FEW/HPF) /HPF Urine Mucus /LPF Salicylates mg/dL Urine Opiates Screen (NEGATIVE) Ur Oxycodone Screen (NEGATIVE) Urine Methadone Screen (NEGATIVE) Acetaminophen ug/mL Ur Barbiturates Screen (NEGATIVE) U Tricyclic Antidepress (NEGATIVE) Ur Phencyclidine Scrn (NEGATIVE) Ur Amphetamine Screen (NEGATIVE) U Methamphetamines Scrn (NEGATIVE) Urine MDMA Screen (NEGATIVE) U Benzodiazepines Scrn (NEGATIVE) Urine Cocaine Screen (NEGATIVE) U Marijuana (THC) Screen (NEGATIVE) Meds: Medications Generic Name Dose Route Start Last Admin Trade Name Freq PRN Reason Stop Dose Admin Potassium Chloride/Sodium Chloride 1,000 mls @ 250 mls/hr 07/27/18 19:00 07/16 18:59 Normal Saline With 40 Meq Kcl IV 250 mls/hr ASDIRECTED JUANA Administration Sodium Chloride 10 ml 07/27/18 18:00 07/27/18 18:13 Saline Flush FLUSH 10 ml ASDIRECTED PRN Administration Keep Vein Open Discontinued Medications Generic Name Dose Route Start Last Admin Trade Name Freq PRN Reason Stop Dose Admin Naloxone HCl 0.8 mg 07/27/18 18:46 07/27/18 18:56 Narcan IVPUSH 07/27/18 18:47 0.8 mg ONETIME ONE Administration Naloxone HCl 0.8 mg 07/27/18 19:37 07/27/18 19:53 Narcan IVPUSH 07/27/18 19:38 0.8 mg ONETIME ONE Administration - Re-Assessments/Exams Free Text/Narrative Re-Assessment/Exam: 07/27/18 20:12 a Tai catheter was placed. Laboratory evaluation once again shows a rather impressive hypokalemia as well as hypomagnesemia. Normal saline with 40 of KCl at 250 mils an hour to start replacement. We are unable to replace orally as she is not alert enough. the patient does move herselfaround the bed spontaneously. Moves all of her extremities strong and equal spontaneously but not to command. She does not verbalize. her urine drug screen is positive for methadone for which she is prescribed and nothing else. 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 She was given a repeat dose of 0.8 mg of Narcan which awoke the patient again and she was moving spontaneously. She continues to not verbalize. This is a very similar almost identical presentation to when I saw her in the emergency department approximately 1 week ago. I do not feel that CT scan is warranted at this time as the patient alerts to Narcan and her CT scan was normal last week. Her oxygen saturation maintained above 92% on a couple liters of oxygen. Due to the repeated doses of Narcan her hypokalemia hypomagnesemia and the concerns for her continued opioid misuse feel that hospitalization is appropriate at this time.Hospitalist does not feel carpal keeping the patient in the hospital due to the elevated troponin and inability to assess for chest pain despite the unchanged EKG. I called and spoke with [facility] and they accepted the patient in transfer at this time without a narcan gtt and bolus prn enroute. The patients family was comfortable with this plan and their questions answered. Departure - Departure Time of Disposition: 19:28 Disposition: DC/Tfer to Acute Hospital 02 Clinical Impression: Drug dependence, Drug abuse, Elevated troponin, Hypokalemia, Hypomagnesemia Altered mental state Qualifiers: Altered mental status type: unspecified Qualified Code(s): R41.82 - Altered mental status, unspecified Opioid overdose Qualifiers: Encounter type: initial encounter Injury intent: undetermined intent Qualified Code(s): T40.2X4A - Poisoning by other opioids, undetermined, initial encounter - Discharge Information Forms: ED Department Discharge ED Communication - Discussed Case With (1) Discussed Case With (1): Admitting Provider (Hospitalist here does not want to keep the patient with the elevated troponin. I called and spoke with Dr. Acevedo at [facility] in [place] where the patient was just discharged from. HPI ER COURSE findings and concerns were relayed to her verbally over the phone. NO questions or orders at this time. Accepted the patient in transfer at this time.) - My Orders Last 24 Hours: My Active Orders 07/27/18 18:00 EKG 12 Lead [EKG Documentation Completion] [RC] URGENT Peripheral IV Care [RC] . DIRECTED Sodium Chloride 0.9% [Saline Flush] 10 ml FLUSH ASDIRECTED PRN Peripheral IV Insertion Adult [OM.PC] Stat 07/27/18 19:00 Sodium Chloride 0.9% with KCl [Normal Saline with 40 mEq KCl] 1,000 ml IV ASDIRECTED - Assessment/Plan Last 24 Hours: My Active Orders 07/27/18 18:00 EKG 12 Lead [EKG Documentation Completion] [RC] URGENT Peripheral IV Care [RC] . DIRECTED Sodium Chloride 0.9% [Saline Flush] 10 ml FLUSH ASDIRECTED PRN Peripheral IV Insertion Adult [OM.PC] Stat 07/27/18 19:00 Sodium Chloride 0.9% with KCl [Normal Saline with 40 mEq KCl] 1,000 ml IV ASDIRECTED Assessment:: Opioid OD responsive to Narcan Hypokalemia Hypomagnesemia Elevated troponin. Altered LOC Opioid dependence Plan: Transfer to [facility] for further care and evaluation.
[2018-07-27 18:39] LABS: ANION GAP 16.6
[2018-07-27 18:40] LABS: BASE EXCESS VENOUS 4.3 mmol/l ((-2)-(+3)); BICARBONATE,VENOUS 29 mmol/l (19-25); O2 DELIVERY DEVICE NON REBR MASK; O2 SATURATION VENOUS 30.7 % (60-80); PCO2 VENOUS 44 mmHg (41-51); PH,VENOUS 7.43 (7.31-7.41); PO2 VENOUS 26 mmHg (35-42)
[2018-07-27 18:45] LABS: O2 FLOW RATE 2.5
[2018-07-27] MEDS ORDERED: Naloxone 2 MG/2 ML Syringe IVPUSH ONE ×2 (18:46→19:37)
[2018-07-27 19:00] LABS: ACETAMINOPHEN < 10.0 ug/mL
[2018-07-27] MEDS ORDERED: Sodium Chloride 0.9% with KCl 1,000 ML IV SCH (19:00)
== END 2018-07-27 20:20 ==
LOC: DL.ED 17:53
DX: T50.7X1A Poisoning by analeptics and opioid receptor antagonists, accidental (unintentional), initial encounter (principal); R41.82 Altered mental status, unspecified; F11.20 Opioid dependence, uncomplicated; E87.6 Hypokalemia; E83.42 Hypomagnesemia; R79.89 Other specified abnormal findings of blood chemistry; I10 Essential (primary) hypertension; E78.00 Pure hypercholesterolemia, unspecified; K21.9 Gastro-esophageal reflux disease without esophagitis; F41.9 Anxiety disorder, unspecified; Z79.899 Other long term (current) drug therapy; Z88.5 Allergy status to narcotic agent; Z88.0 Allergy status to penicillin; Z88.2 Allergy status to sulfonamides; Z88.1 Allergy status to other antibiotic agents
CPT/HCPCS: 36415; 71045; 80053; 80305; 81001; 82803; 83735; 84443; 84484; 85025; 93005; 96365; 96375; 96376; 99285; G0480; J2310; J3480

== ENCOUNTER 2019-03-12 20:24 | Emergency (ER) | payer MEDICARE, MEDICAID ==
[2019-03-12] MEDS ORDERED: MVI, Adult with Vitamin K 10 ML, Folic Acid 1 MG, Thiamine 100 MG in Lactated Ringers 1... IV ONE ×4 (20:37)
[2019-03-12 21:03] LABS: ANION GAP 13.2; CHLORIDE,CL 102 mmol/L (101-111); SODIUM,NA 141 mmol/L (135-145)
[2019-03-12 21:07] LABS: ACETAMINOPHEN < 10.0 ug/mL
[2019-03-12] MEDS ORDERED: Famotidine 20 MG Tab PO ONE (22:35)
[2019-03-12] MEDS ORDERED: Potassium Chloride 10 MEQ Tab.ER PO ONE (22:35)
--- NOTE | 2019-03-12 23:09 | EDM.PDOCBH ---
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 Patient reported to have taken usual medications and a couple of Ativan for her anxiety. Is under stress with family issues and hx poor coping skill. Found bottle of liquier in fridge and drank it. Daughter notes almost full. Patient reports rare ETOH use and family confirm. 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 Patient hx BPD, seizure disorder, currently on depakote. Primary neurologist in [place]. Daughter Lambert has POA. No suicidal ideations Lower Back Pain Score (Numeric/FACES): 3 Neck Pain Score (Numeric/FACES): 3 - Related Data Allergies Allergy/AdvReac Type Severity Reaction Status Date / Time morphine Allergy Facial Verified 07/27/18 18:15 Swelling Penicillins Allergy Other Verified 07/27/18 18:15 sulfamethoxazole Allergy Hives Verified 07/27/18 18:15 [From Bactrim] trimethoprim [From Bactrim] Allergy Hives Verified 07/27/18 18:15 Home Meds: Home Meds ALPRAZolam [Xanax] 0.25 mg PO Q4H PRN 10/08/17 [History] Albuterol/Ipratropium [Combivent Respimat] 1 - 2 puff INH Q4HR PRN 10/08/17 [ History] Caffeine 400 mg PO DAILY 10/08/17 [History] Carisoprodol [Soma] 350 mg PO DAILY 10/08/17 [History] Cholecalciferol (Vitamin D3) [Vitamin D] 5,000 unit PO DAILY 10/08/17 [History] DULoxetine [Cymbalta] 120 mg PO DAILY 10/08/17 [History] Ibuprofen 1 - 2 tab PO Q6H PRN 10/08/17 [History] Levothyroxine 25 mcg PO DAILY 10/08/17 [History] Lisinopril 10 mg PO DAILY 10/08/17 [History] Loperamide [Imodium AD] 8 mg PO Q6H PRN 10/08/17 [History] Magnesium 250 mg PO DAILY 10/08/17 [History] Methadone 5 mg PO QID 10/08/17 [History] Methocarbamol 500 mg PO TID 10/08/17 [History] Ondansetron HCl [Zofran] 4 mg PO DAILY PRN 10/08/17 [History] Pantoprazole Sodium [Protonix] 40 mg PO DAILY 10/08/17 [History] Pnv No.95/Ferrous Fum/Folic AC [ Multivitamin Tablet] 1 tab PO DAILY [History] Pregabalin [Lyrica] 300 mg PO BID 10/08/17 [History] Rosuvastatin [Crestor] 5 mg PO DAILY 10/08/17 [History] diphenhydrAMINE [Benadryl] 50 mg PO BID 10/08/17 [History] Past Medical History HEENT History: Reports: Impaired Vision Other HEENT History: WEARS CORRECTIVE LENS. UPPER DENTURE PLATE Cardiovascular History: Reports: High Cholesterol, Hypertension, Other (See Below) Other Cardiovascular History: RIGHT BUNDLE BRANCH BLOCK Other Respiratory History: HX OF TOBACCO HABITUATION. SEASONAL ASTHMA Gastrointestinal History: Reports: Cholelithiasis, GERD Genitourinary History: Reports: None TABLET REPAIR History: Reports: Endometrial Ablation, Endometriosis, , Spontaneous Musculoskeletal History: Reports: Back Pain, Chronic, Fracture, Fibromyalgia, Neck Pain, Chronic, Osteoarthritis, Other (See Below) Other Musculoskeletal History: HX OF LOWER SPINAL FRACTURES Neurological History: Reports: None Psychiatric History: Reports: Addiction, Anxiety, Depression, Mood Swings Endocrine/Metabolic History: Reports: Hypothyroidism, Obesity/BMI 30+, Osteoporosis, Vitamin D Deficiency Hematologic History: Reports: None Immunologic History: Reports: None Oncologic (Cancer) History: Reports: None Dermatologic History: Reports: None - Infectious Disease History Infectious Disease History: Reports: Chicken Pox - Past Surgical History Head Surgeries/Procedures: Reports: None HEENT Surgical History: Reports: Oral Surgery Cardiovascular Surgical History: Reports: None Respiratory Surgical History: Reports: None GI Surgical History: Reports: EGD Female Surgical History: Reports: Section, Cystoscopy, D&C Endocrine Surgical History: Reports: None Neurological Surgical History: Reports: Lumbar Spine Musculoskeletal Surgical History: Reports: None Oncologic Surgical History: Reports: None Dermatological Surgical History: Reports: None Social & Family History - Family History Family Medical History: Noncontributory - Tobacco Use Smoking Status *Q: Current Every Day Smoker Years of Tobacco use: 31 Packs/Tins Daily: 1.5 Used Tobacco, but Quit: No Second Hand Smoke Exposure: Yes - Caffeine Use Caffeine Use: Reports: Soda Other Caffeine Use: SODA POP 6 PACK DAILY - Recreational Drug Use Recreational Drug Use: Yes Drug Use in Last 12 Months: Yes Recreational Drug Type: Reports: Marijuana/Hashish Recreational Drug Use Frequency: Binges ED ROS GENERAL - Review of Systems Review Of Systems: ROS reveals no pertinent complaints other than HPI. ED EXAM, BEHAVIORAL HEALTH - Physical Exam Exam: See Below Exam Limited By: No Limitations General Appearance: Alert, No Apparent Distress Eye Exam: Bilateral Eye: EOMI Ears: Normal External Exam Nose: Normal Inspection Throat/Mouth: Normal Inspection, Normal Oropharynx Head: Atraumatic, Normocephalic Neck: Normal Inspection, Supple Respiratory/Chest: No Respiratory Distress, Lungs Clear Cardiovascular: Normal Peripheral Pulses, Regular Rate, Rhythm GI/Abdominal: Normal Bowel Sounds, Soft Back Exam: Normal Inspection Extremities: Normal Inspection Neurological: Alert, Normal Cognition, Normal Gait, Oriented x 3 Psychiatric: Alert, Normal Affect Skin Exam: Warm, Dry, Intact, Normal color, No rash COURSE, BEHAVIORAL HEALTH COMP - Course Vital Signs: Last Vital Signs Temp 96 F 03/12/19 20:39 Pulse 85 03/12/19 20:39 Resp 13 03/12/19 20:39 BP 114/69 03/12/19 20:39 Pulse Ox 94 L 03/12/19 20:39 Orders, Labs, Meds: Active Orders 24 hr Category Date Time Status EKG Documentation Completion [RC] STAT Care 03/12/19 20:37 Active Laboratory Tests 03/12/19 03/12/19 03/12/19 Range/Units 20:31 20:31 20:31 WBC 7.9 (5.0-10.0) 10^3/uL RBC 4.87 (4.2-5.4) 10^6/uL Hgb 16.4 H D (12.0-16.0) g/dL Hct 48.4 H (37.0-47.0) % MCV 99.4 (80-100) fL MCH 33.7 (27.0-34.0) pg MCHC 33.9 (33.0-35.0) g/dL Plt Count 156 (150-450) 10^3/uL Neut % (Auto) 63.9 (42.2-75.2) % Lymph % (Auto) 25.4 (20.5-50.1) % [place] % (Auto) 8.1 H (2-8) % Eos % (Auto) 2.0 (1.0-3.0) % Baso % (Auto) 0.6 (0.0-1.0) % PT 9.5 (9.0-12.0) SEC INR 0.9 (0.9-1.2) Sodium 141 (135-145) mmol/L Potassium 3.2 L (3.6-5.0) mmol/L Chloride 102 (101-111) mmol/L Carbon Dioxide 29.0 (21.0-31.0) mmol/L Anion Gap 13.2 BUN 10 (7-18) mg/dL Creatinine 0.9 (0.6-1.3) mg/dL Est Cr Clr Drug Dosing 76.76 mL/min Estimated GFR (MDRD) > 60 BUN/Creatinine Ratio 11.11 Glucose 106 H (74-105) mg/dL Calcium 8.8 (8.4-10.2) mg/dl Total Bilirubin 0.6 (0.2-1.0) mg/dL AST 16 (10-42) IU/L ALT 15 (10-60) IU/L Alkaline Phosphatase 52 (42-121) IU/L Total Protein 7.5 (6.7-8.2) g/dl Albumin 4.0 (3.2-5.5) g/dl Globulin 3.5 Albumin/Globulin Ratio 1.14 Urine Color (YELLOW) Urine Appearance (CLEAR) Urine pH (5.0-9.0) Ur Specific [place] (1.005-1.030) Urine Protein (NEGATIVE) Urine Glucose (UA) (NEGATIVE) Urine Ketones (NEGATIVE) Urine Occult Blood (NEGATIVE) Urine Nitrite (NEGATIVE) Urine Bilirubin (NEGATIVE) Urine Urobilinogen (0.2-1.0) mg/dL Ur Leukocyte Esterase (NEGATIVE) Salicylates < 4.0 mg/dL Urine Opiates Screen (NEGATIVE) Ur Oxycodone Screen (NEGATIVE) Urine Methadone Screen (NEGATIVE) Acetaminophen < 10.0 ug/mL Ur Barbiturates Screen (NEGATIVE) U Tricyclic Antidepress (NEGATIVE) Ur Phencyclidine Scrn (NEGATIVE) Ur Amphetamine Screen (NEGATIVE) U Methamphetamines Scrn (NEGATIVE) Urine MDMA Screen (NEGATIVE) U Benzodiazepines Scrn (NEGATIVE) Urine Cocaine Screen (NEGATIVE) U Marijuana (THC) Screen (NEGATIVE) Ethyl Alcohol 56 mg/dL 03/12/19 03/12/19 03/12/19 Range/Units 21:52 21:52 22:39 WBC (5.0-10.0) 10^3/uL RBC (4.2-5.4) 10^6/uL Hgb (12.0-16.0) g/dL Hct (37.0-47.0) % MCV (80-100) fL MCH (27.0-34.0) pg MCHC (33.0-35.0) g/dL Plt Count (150-450) 10^3/uL Neut % (Auto) (42.2-75.2) % Lymph % (Auto) (20.5-50.1) % [place] % (Auto) (2-8) % Eos % (Auto) (1.0-3.0) % Baso % (Auto) (0.0-1.0) % PT (9.0-12.0) SEC INR (0.9-1.2) Sodium (135-145) mmol/L Potassium (3.6-5.0) mmol/L Chloride (101-111) mmol/L Carbon Dioxide (21.0-31.0) mmol/L Anion Gap BUN (7-18) mg/dL Creatinine (0.6-1.3) mg/dL Est Cr Clr Drug Dosing mL/min Estimated GFR (MDRD) BUN/Creatinine Ratio Glucose (74-105) mg/dL Calcium (8.4-10.2) mg/dl Total Bilirubin (0.2-1.0) mg/dL AST (10-42) IU/L ALT (10-60) IU/L Alkaline Phosphatase (42-121) IU/L Total Protein (6.7-8.2) g/dl Albumin (3.2-5.5) g/dl Globulin Albumin/Globulin Ratio Urine Color Yellow (YELLOW) Urine Appearance Clear (CLEAR) Urine pH 6.5 (5.0-9.0) Ur Specific [place] <= 1.005 (1.005-1.030) Urine Protein Negative (NEGATIVE) Urine Glucose (UA) Negative (NEGATIVE) Urine Ketones Negative (NEGATIVE) Urine Occult Blood Negative (NEGATIVE) Urine Nitrite Negative (NEGATIVE) Urine Bilirubin Negative (NEGATIVE) Urine Urobilinogen 0.2 (0.2-1.0) mg/dL Ur Leukocyte Esterase Negative (NEGATIVE) Salicylates mg/dL Urine Opiates Screen Positive H (NEGATIVE) Ur Oxycodone Screen Negative (NEGATIVE) Urine Methadone Screen Negative (NEGATIVE) Acetaminophen ug/mL Ur Barbiturates Screen Negative (NEGATIVE) U Tricyclic Antidepress Negative (NEGATIVE) Ur Phencyclidine Scrn Negative (NEGATIVE) Ur Amphetamine Screen Negative (NEGATIVE) U Methamphetamines Scrn Negative (NEGATIVE) Urine MDMA Screen Negative (NEGATIVE) U Benzodiazepines Scrn Positive H (NEGATIVE) Urine Cocaine Screen Negative (NEGATIVE) U Marijuana (THC) Screen Negative (NEGATIVE) Ethyl Alcohol 23 mg/dL Medications Discontinued Medications Generic Name Dose Route Start Last Admin Trade Name Bobq PRN Reason Stop Dose Admin Famotidine 20 mg 03/12/19 22:35 03/12/19 22:58 Pepcid PO 03/12/19 22:36 20 mg ONETIME ONE Administration Multivitamins/Minerals 10 ml/ 1,011.2 mls @ 999 mls/hr 03/12/19 20:37 20:49 Folic Acid 1 mg/ Thiamine HCl IV 03/12/19 21:37 999 mls/hr 100 mg/ Lactated Ringer's ONETIME ONE Administration Potassium Chloride 20 meq 03/12/19 22:35 03/12/19 22:58 Klor-Con 10 PO 03/12/19 22:36 20 meq ONETIME ONE Administration Departure - Departure Time of Disposition: 23:07 Disposition: Home, Self-Care 01 Condition: Good Clinical Impression: Alcohol abuse, Anxiety - Discharge Information *PRESCRIPTION DRUG MONITORING PROGRAM REVIEWED*: No *COPY OF PRESCRIPTION DRUG MONITORING REPORT IN PATIENT ALAINA: No Instructions: Generalized Anxiety Disorder, Adult Referrals: PCP,Unobtain [Ordering Only Provider] - Forms: ED Department Discharge Additional Instructions: take medication as prescribed do not mix medications with alcohol follow up with [facility] in [facility] tonight - My Orders Last 24 Hours: My Active Orders 03/12/19 20:37 EKG Documentation Completion [RC] STAT - Assessment/Plan Last 24 Hours: My Active Orders 03/12/19 20:37 EKG Documentation Completion [RC] STAT
== END 2019-03-12 23:14 | disposition home or self-care (01) ==
LOC: DL.ED 20:24
DX: F41.9 Anxiety disorder, unspecified (principal); F10.20 Alcohol dependence, uncomplicated; Y90.1 Blood alcohol level of 20-39 mg/100 ml; I10 Essential (primary) hypertension; E78.00 Pure hypercholesterolemia, unspecified; K21.9 Gastro-esophageal reflux disease without esophagitis; F32.9 Major depressive disorder, single episode, unspecified; E03.9 Hypothyroidism, unspecified; E66.9 Obesity, unspecified; Z68.31 Body mass index [BMI] 31.0-31.9, adult; F17.210 Nicotine dependence, cigarettes, uncomplicated; Z88.5 Allergy status to narcotic agent; Z88.2 Allergy status to sulfonamides; Z88.0 Allergy status to penicillin; Z88.1 Allergy status to other antibiotic agents; Z79.899 Other long term (current) drug therapy
CPT/HCPCS: 36415; 80053; 80305; 81003; 85025; 85610; 93005; 96365; 96366; 99284; A9270; G0480; J3411; J7120; 99283; J3490